=== PATIENT | male | born 1945 | race Caucasian/White ===

== ENCOUNTER 2016-08-27 17:21 | Emergency (ER) | payer MEDICARE ==
[2016-08-27 17:00] LABS: BASOPHILS 0.4 %; BASOPHILS ABSOLUTE 0.05 10/3/uL (0.0-0.16); EOSINOPHILS 1.1 %; EOSINOPHILS ABSOLUTE 0.13 10/3/uL (0.0-0.53); HEMATOCRIT 42.7 % (40.0-51.0); HEMOGLOBIN 15.7 g/dL (13.6-17.8); IMMATURE GRANULOCYTES 0.3 %; IMMATURE GRANULOCYTES ABSOLUTE 0.03 10/3/uL (0.0-0.11); LYMPHOCYTES 13.7 %; LYMPHOCYTES ABSOLUTE 1.59 10/3/uL (0.67-4.30); MEAN CORPUS HGB CONC 36.8 g/dL (32.0-36.0); MEAN CORPUSCULAR HEMOGLOB 34.4 pg (26.0-34.0); MEAN CORPUSCULAR VOLUME 93.4 fL (80-100); MEAN PLATELET VOLUME 10.9 fL (9.2-13.0); MONOCYTES 6.4 %; MONOCYTES ABSOLUTE 0.75 10/3/uL (0.21-1.20); NEUTROPHILS 78.1 %; NEUTROPHILS ABSOLUTE 9.08 10/3/uL (2.02-8.40); RBC DISTRIBUTION WIDTH 13.2 % (12.0-16.0); RED CELL COUNT 4.57 10/6/uL (4.7-6.1)
[2016-08-27 17:06] LABS: ER CBC TAT 0 Hrs 12 Mins; MANUAL DIFF NO %; PLATELET COUNT 151 10/3/uL (150-400); WHITE BLOOD CELLS 11.6 10/3/uL (4.5-10.5)
[2016-08-27 17:11] LABS: INTERNATIONAL NORMAL RATI 1.1 UNITS (-); PARTIAL THROMBO TIME 33.7 SEC (22.5-37.2); PROTIME (NOT ORD) 13.8 SEC (12.0-14.5)
[2016-08-27 17:12] LABS: BUN (BLOOD UREA NITROGEN) 30 MG/DL (6-23); CALCIUM, SERUM 9.8 MG/DL (8.5-10.4); CHLORIDE, SERUM 101 MMOL/L (96-112); CO2 (CARBON DIOXIDE) 25 MMOL/L (24-34); CREATININE 1.47 MG/DL (0.70-1.30); GFR AFRICAN AMERICAN 55 ML/MIN (>=60); GFR NON AFRICAN AMERICAN 48 ML/MIN (>=60); GLUCOSE, SERUM 145 MG/DL (60-99); POTASSIUM, SERUM 3.9 MMOL/L (3.5-5.3); SODIUM, SERUM 136 MMOL/L (135-148)
[~2016-08-27 17:21] MED LIST: AMB10 PO; ASAB PO; ASPER-FLEX10 % EX; ATIVAN2 MG PO; ATV1 PO; BENADRYL 50 MG50 MG PO; BUDEPRION100 MG PO; CILOSTAZOL50 MG PO; DEPAKOT250 PO; DEPAKOTEER PO; ENDOCET1 TA3 PO; FISH OIL1200 MG PO; FORTAMET500 MG PO; GLUCOPHXR PO; GLUCPH PO; HALF81 PO; IMOD PO; KLONO5 PO; LORT7 PO; LOVAZA1 GM PO; LYRICA100 MG PO; LYRICA75 PO; MOBIC15 MG PO; MSCONT15 PO; NORCO1 TAB; NORCO1 TAB PO; OS500+D PO; OTC MUSCLE RUB TOP; PAX10 PO; PERCOCET1 TA3 PO; PLAVIX PO; PLETAL50 PO; PRAVACHOL40 MG PO; PRAVACHOL80 MG PO; PRIN20 PO; RESTORIL30 MG PO; T PO; TRAZ100 PO; TRAZ50 PO; VICODIN ES1 TAB PO; ZESTORETIC1 TA1 PO; ZESTRIL10 MG PO; ZOCOR40 PO; ZOL100 PO
[2016-08-27 18:58] LABS: SED RATE 52 MM/HR (0-15)
[2016-12-09] MEDS ORDERED: LISINOPRIL40 MG PO (12:40)
[2016-12-09] MEDS ORDERED: IMDUR30 PO (12:40)
[2016-12-09] MEDS ORDERED: LOP25 PO (12:41)
[2016-12-09] MEDS ORDERED: NITROSTAT0.4 MG SL (12:42)
[2016-12-09] MEDS ORDERED: KEPPRA1000 MG PO (14:14)
[2016-12-09] MEDS ORDERED: ATV1 PO (14:16)
[2016-12-09] MEDS ORDERED: PAX10 PO (14:17)
== END 2016-08-27 19:49 | disposition home or self-care (01) ==
LOC: ER 17:21
PROVIDERS: Nurse Practitioner
DX: R51 Headache (principal); I12.9 Hypertensive chronic kidney disease with stage 1 through stage 4 chronic kidney disease, or unspecified chronic kidney disease; N18.9 Chronic kidney disease, unspecified; F17.200 Nicotine dependence, unspecified, uncomplicated; Z86.73 Personal history of transient ischemic attack (TIA), and cerebral infarction without residual deficits; Z87.442 Personal history of urinary calculi; Z88.5 Allergy status to narcotic agent; Z88.8 Allergy status to other drugs, medicaments and biological substances; Z79.899 Other long term (current) drug therapy; Z79.82 Long term (current) use of aspirin
CPT/HCPCS: 70450; 80048; 85025; 85610; 85652; 85730; 96374; 96375; 99285; A9270-GY; J1200; J2765